=== PATIENT | male | born 1980 | race American Indian/Alaskan Native ===

== ENCOUNTER 2017-11-30 10:30 | Emergency (ER) | payer SELFPAY ==
[2017-11-30] MEDS ORDERED: ASPIRIN PO ONE (10:44)
[2017-11-30 10:47] VITALS: BP 142/89
--- NOTE | 2017-11-30 11:31 | Emergency Department Report ---
Chief Complaint: Chest Pain Stated Complaint: CHEST PAIN Time Seen by Provider: 11/30/17 11:27 - HPI History of Present Illness: 37-year-old -[place] male presents to the emergency department with a complaint of some midsternal to left-sided chest discomfort/pressure that been going on since yesterday. It is associated with some intermittent shortness of breath. Patient has no past medical history. He has a primary care physician but has not seen them regarding these current symptoms. He denies any tobacco, illicit drug use or alcohol use/abuse. Recent travel or sick contacts at home. - ROS Review of Systems: Positive for chest pain, intermittent shortness of breath Negative for back pain, fever, nausea, vomiting, diaphoresis - Exam Vital Signs: Vital Signs 11/30/17 10:40 Temperature 98.9 F Pulse Rate 59 L Respiratory 16 Rate Blood Pressure 142/89 O2 Sat by Pulse 99 Oximetry Physical Exam: Heart and lungs sounds are normal to auscultation. Patient does not appear in any acute distress. MSE screening note: Focused history and physical exam performed. Due to findings the following was ordered: I have ordered a CBC, BMP, troponin and d-dimer. Two-view chest x-ray. An EKG has been done that is essentially negative. Heart rate is 59. No ST elevation [place]. ED Disposition for MSE Condition: Stable Referrals: PRIMARY CARE, [Primary Care Provider] - 3-5 Days
[2017-11-30 12:27] LABS: Basophils % (Auto) 0.4 % (0.0-1.8); Hematocrit 37.5 % (35.5-45.6); Hemoglobin 12.6 gm/dl (11.8-15.2); Lymphocytes # (Auto) 0.6 K/mm3 (1.2-5.4); Lymphocytes % (Auto) 19.9 % (13.4-35.0); Mean Corpuscular HGB Conc 34 % (32-34); Mean Corpuscular Hemoglobin 30 pg (28-32); Mean Corpuscular Volume 88 fl (84-94); Monocytes # (Auto) 0.2 K/mm3 (0.0-0.8); Monocytes % (Auto) 7.7 % (0.0-7.3); Platelet Count 232 K/mm3 (140-440); Red Blood Count 4.25 M/mm3 (3.65-5.03)
[2017-11-30 12:31] LABS: BUN/Creatinine Ratio 16; Blood Urea Nitrogen 13 mg/dL (9-20); Calcium 9.6 mg/dL (8.4-10.2); Hemolysis Index 15
--- NOTE | 2017-11-30 12:56 | Emergency Department Report ---
Minor Respiratory - HPI Chief Complaint: Chest Pain Stated Complaint: CHEST PAIN Time Seen by Provider: 11/30/17 11:27 Duration: 3 Days Pain Location: Chest Severity: mild Minor Respiratory: Yes Able to Tolerate Fluids, Yes Chest Pain (sharp), No Rhinorrhea, No Sore Throat, No Ear Pain, No Cough, No Sick Contacts, No Hemoptysis, No Shortness of Breath, No Fever Other History: allergic conjunctivitis of eyes on claritan at home. no hx asthma. reports hx anemia. ED Review of Systems ROS: Stated complaint: CHEST PAIN Other details as noted in HPI Comment: All other systems reviewed and negative Constitutional: denies: chills, fever Eyes: other (eyes red on claritan) ENT: denies: ear pain, throat pain Respiratory: denies: cough, orthopnea Cardiovascular: chest pain (sharp) Endocrine: no symptoms reported Gastrointestinal: denies: abdominal pain, nausea Genitourinary: denies: urgency, dysuria Musculoskeletal: denies: back pain Skin: denies: rash, lesions Neurological: denies: headache, weakness Psychiatric: denies: anxiety, depression Hematological/Lymphatic: denies: easy bleeding ED Past Medical Hx - Past Medical History Previous Medical History?: Yes Additional medical history: reports anemia;. psh wisdom teeth removal and foot surgery - Surgical History Past Surgical History?: No - Family History Family history: no significant - Social History Smoking Status: Never Smoker Substance Use Type: None Minor Respiratory Exam - Exam General: Vital signs noted. No distress. Alert and acting appropriately. conjuctiva red bilat HEENT: Yes Moist Mucous Membranes, No Pharyngeal Erythema, No Pharyngeal Exudates, No Rhinorrhea, No Frontal Tenderness, No Maxillary Tenderness Ear: Neither TM Bulge, Neither TM Erythema, Neither EAC Pain, Neither EAC Discharge Neck: Yes Supple, No Adenopathy Lungs: Yes Good Air Exchange, No Wheezes, No Ronchi, No Stridor, No Cough, No Labored Respirations, No Retractions, No Use of Accessory Muscles, No Other Abnormal Lung Sounds Heart: Yes Regular, No Murmur Abdomen: Yes Normal Bowel Sounds, No Tenderness, No Peritoneal Signs Skin: No Rash, No Edema Neurologic: Alert and oriented, no deficits. Musculoskeletal: Unremarkable. ED Course Vital Signs 11/30/17 10:40 Temperature 98.9 F Pulse Rate 59 L Respiratory 16 Rate Blood Pressure 142/89 O2 Sat by Pulse 99 Oximetry - Reevaluation(s) Reevaluation #1: 11/30/17 12:58 12 lead noted trop neg ddimer neg labs noted no inc wbc no fever xray noted dc home w fiancee and dc poc ED Medical Decision Making - Lab Data Result diagrams: 11/30/17 11:54 11/30/17 11:54 - EKG Data -: EKG Interpreted by Me EKG shows normal: sinus rhythm Rate: bradycardia (59) - EKG Data When compared to previous EKG there are: no significant change Interpretation: no acute changes - Radiology Data Radiology results: image reviewed - Medical Decision Making ddimer neg trop neg [address] elevation or depression; rate 59 in healthy appearing male. no fever allergic conjunctivitis w pleuritic chest pain - Differential Diagnosis pna, urti, pleurisy, acs, pe Critical care attestation.: If time is entered above; I have spent that time in minutes in the direct care of this critically ill patient, excluding procedure time. ED Disposition Clinical Impression: Pleuritic chest pain, Allergic conjunctivitis Disposition: DC-01 TO HOME OR SELFCARE Is pt being admited?: No Does the pt Need Aspirin: No Condition: Stable Instructions: Pleurisy (ED) Additional Instructions: follow up with [facility] as needed continue home claritan or change to zyrtec motrin for pain hydrate well with water Referrals: PRIMARY CARE, [Primary Care Provider] - 3-5 Days Time of Disposition: 12:56
--- NOTE | 2017-11-30 14:13 | XRay Report ---
FINAL REPORT EXAM: XR CHEST ROUTINE 2V HISTORY: CP TECHNIQUE: Frontal and lateral chest radiographs. PRIORS: None. FINDINGS: The cardiomediastinal silhouette is normal. No focal consolidation. No pleural effusion. No pneumothorax. No acute osseous abnormality. IMPRESSION: No acute cardiopulmonary process.
== END 2017-11-30 13:06 | disposition home or self-care (01) ==
LOC: ED 10:30
DX: R07.89 Other chest pain (principal); H10.10 Acute atopic conjunctivitis, unspecified eye
CPT/HCPCS: 36415; 71046; 80048; 84484; 85025; 85379; 93005; 93010